=== PATIENT | female | born 1970 | race Caucasian/White ===

== ENCOUNTER → 2016-08-23 | Outpatient (CLI) | payer OTHER ==
[~2016-08-23] MED LIST: BYSTOLIC5 MG PO; COMPAZINE10 MG PO; DECADRON1 MG PO; FLEXERIL10 MG PO; MOBIC7.5 MG PO; NORCO 5-325 MG1 TAB PO; OXYCONTIN EXTEN10 MG PO; OXYCONTIN20 MG PO; PEPCID20 MG PO; PHENERGAN25 M1 PO; ROXICODONE 5MG (5 MG PO; TYLENOL325 MG PO; ULTRAM50 MG PO; WOMEN'S MULTI200 MCG PO
== END | disposition disaster alternative care site (69) ==
LOC: GRAD 10:39
DX: R42 Dizziness and giddiness (principal); R51 Headache; Z90.09 Acquired absence of other part of head and neck; Z98.890 Other specified postprocedural states